=== PATIENT | female | born 1990 | race Caucasian/White ===

== ENCOUNTER 2019-03-15 18:43 | Day surgery (SDC) | payer BC ==
[2019-03-15] MEDS ORDERED: Betamet Acet/Betamet Na Ph 30 MG/5 ML VIAL ONE (19:14)
[2019-03-15] MEDS ORDERED: Betamet Acet/Betamet Na Ph 30 MG/5 ML VIAL IM SCH (19:30)
== END 2019-03-15 19:27 | disposition home or self-care (01) ==
LOC: L&D/OP 18:43
PROVIDERS: ATTEND Obstetrics & Gynecology
DX: Z29.8 Encounter for other specified prophylactic measures (principal)
CPT/HCPCS: J0702

== ENCOUNTER 2019-04-07 05:25 | Inpatient (IN) | payer BC ==
[2019-04-07] MEDS ORDERED: Ondansetron PF 4 MG/2 ML Vial IVP PRN ×3 (05:44→14:41)
[2019-04-07] MEDS ORDERED: Promethazine HCl 25 MG/ML VIAL IM PRN ×3 (05:44→14:41)
[2019-04-07] MEDS ORDERED: Butorphanol Tartrate 1 MG/ML VIAL SLOW IVP PRN ×2 (05:44→05:45)
[2019-04-07] MEDS ORDERED: Acetaminophen 500 MG TAB PO PRN (05:44)
[2019-04-07] MEDS ORDERED: NS / Oxytocin 40 units/1000ml 1,000 ML IV SCH (05:45)
[2019-04-07] MEDS ORDERED: Docusate 100 MG CAP PO PRN (05:45)
[2019-04-07] MEDS ORDERED: NS w/ Oxytocin 10 units 500 ML IV SCH ×2 (05:45)
[2019-04-07] MEDS ORDERED: Lactated Ringer's 1,000 ML IV PRN (05:45)
[2019-04-07] MEDS ORDERED: Methylergonovine 0.2 MG/ML VIAL IM PRN (05:45)
[2019-04-07] MEDS ORDERED: Misoprostol 200 MCG TAB RC PRN (05:45)
[2019-04-07] MEDS ORDERED: Lidocaine 1% (PF) 30 ML VIAL SC PRN ×2 (05:45)
[2019-04-07] MEDS ORDERED: HYDROcodone/Acetaminophen 5/325 mg Tablet PO PRN ×2 (05:45)
[2019-04-07] MEDS ORDERED: Lactated Ringer's 1,000 ML IV SCH (05:45)
[2019-04-07] MEDS ORDERED: Ibuprofen 800 MG TAB PO PRN (05:45)
[2019-04-07] MEDS ORDERED: NS / Oxytocin 40 units/1000ml 1,000 ML IV PRN (05:45)
[2019-04-07 05:52] VITALS: BMI 22.8
[2019-04-07 06:16] LABS: Hemoglobin 10.4 g/dL (12.0-16.0); Mean Corpuscular HGB CONC 33.5 g/dL (32.0-36.0); Mean Corpuscular Hemoglobin 28.8 pg (27.0-31.0); Mean Corpuscular Volume 85.8 fL (78.0-98.0); Mean Platelet Volume 9.3 fL (7.4-10.4); Platelet Count 138 thou/uL (130-400); RBC Distribution Width 15.8 % (11.5-14.5); Red Blood Cell (RBC) Count 3.61 mill/uL (4.20-5.40); White Blood Cell (WBC) Count 8.1 thou/uL (4.8-10.8)
[2019-04-07] MEDS: NS w/ Oxytocin 10 units 500 ML IV SCH (06:37)
[2019-04-07 06:58] LABS: HBSAg Index 0.31 S/CO (0-0.99); Hep B Surf Ag Non-Reactive S/CO (NonReactive); Syphilis Antibody Nonreactive (Nonreactive); Syphilis Antibody Index 0.03 S/CO (<1.00 Non-Reactive)
[2019-04-07] MEDS ORDERED: Fentanyl 4 mcg/Bup 0.1% Cadd 100 ML ONE ×2 (08:32→20:32)
[2019-04-07] MEDS: Lactated Ringer's 1,000 ML IV SCH ×2 (11:45→21:59)
[2019-04-07] MEDS ORDERED: Lactated Ringer's 500 ML IV PRN (14:41)
[2019-04-07] MEDS ORDERED: ePHEDrine/0.9% NaCl/PF SYRINGE 50 mg/10 ml SLOW IVP PRN (14:41)
[2019-04-07] MEDS ORDERED: diphenhydrAMINE 50 MG/ML VIAL IVP PRN (14:41)
[2019-04-07] MEDS ORDERED: Naloxone HCl 0.4 mg/ml Vial IVP PRN ×2 (14:41)
[2019-04-07] MEDS ORDERED: Acetaminophen 325 MG TAB PO PRN (14:41)
[2019-04-07] MEDS ORDERED: Fentanyl 4 mcg/Bupivacaine 0.1% Cassette 100 ML EPIDURAL SCH (14:45)
[2019-04-07] MEDS ORDERED: Communication Order-Pharmacy FS SCH (14:45)
[2019-04-08] MEDS ORDERED: Bupivacaine 0.25% HCL 30 ML VIAL ONE ×2 (01:20→11:11)
[2019-04-08] MEDS ORDERED: Lidocaine 2% 10 ML INJ ONE (01:21)
[2019-04-08] MEDS ORDERED: Bisacodyl 10 MG SUPP PR PRN (03:45)
[2019-04-08] MEDS ORDERED: Zolpidem Tartrate 5 MG TAB PO PRN (03:45)
[2019-04-08] MEDS ORDERED: Ondansetron PF 4 MG/2 ML Vial IVP PRN (03:45)
[2019-04-08] MEDS ORDERED: Benzocaine-Menthol 82.5 ML CAN TOP PRN (03:45)
[2019-04-08] MEDS ORDERED: Milk Of Magnesia 30 ML UDCUP PO PRN (03:45)
[2019-04-08] MEDS ORDERED: HYDROcodone/Acetaminophen 5/325 mg Tablet PO PRN (03:45)
[2019-04-08] MEDS ORDERED: Preparation H Ointment 28 GM TUBE PR PRN (03:45)
[2019-04-08] MEDS ORDERED: Lanolin Ointment 7 GM TUBE TOP PRN (03:45)
[2019-04-08] MEDS ORDERED: NS / Oxytocin 40 units/1000ml 1,000 ML IV SCH (03:45)
[2019-04-08] MEDS: Ibuprofen 800 MG TAB PO SCH ×3 (05:58→22:00)
[2019-04-08] MEDS: Prenatal Vitamin 1 TAB PO SCH (08:20)
[2019-04-08] MEDS: Ferrous Sulfate 325 MG TAB PO SCH ×2 (08:20→18:08)
[2019-04-08] MEDS: Docusate Calcium (SURFAK) 240 MG CAP PO SCH ×2 (08:20→21:59)
[2019-04-08] MEDS ORDERED: Bupivacaine/Epinephrine 0.25% 30 ML VIAL ONE (11:11)
[2019-04-08] MEDS: HYDROcodone/Acetaminophen 5/325 mg Tablet PO PRN (12:22)
[2019-04-08] MEDS ORDERED: Sodium Chloride 0.9% 10 ML ONE (14:32)
[2019-04-08] MEDS: Lactated Ringer's 1,000 ML IV SCH (18:08)
[2019-04-08] MEDS: NS w/ Oxytocin 10 units 500 ML IV SCH (18:08)
[2019-04-09] MEDS: Ibuprofen 800 MG TAB PO SCH ×3 (06:21→21:34)
[2019-04-09] MEDS: Prenatal Vitamin 1 TAB PO SCH (08:32)
[2019-04-09] MEDS: Docusate Calcium (SURFAK) 240 MG CAP PO SCH ×2 (08:32→21:34)
[2019-04-09] MEDS: HYDROcodone/Acetaminophen 5/325 mg Tablet PO PRN ×2 (08:55→13:31)
[2019-04-09] MEDS ORDERED: Adacel (T-DAP) 0.5 ML SYRINGE IM ONE (09:00)
[2019-04-09] MEDS: Lactated Ringer's 1,000 ML IV SCH ×2 (09:06→13:45)
[2019-04-09] MEDS: NS w/ Oxytocin 10 units 500 ML IV SCH (09:07)
[2019-04-09] MEDS: Ferrous Sulfate 325 MG TAB PO SCH (09:09)
[2019-04-10] MEDS: Ibuprofen 800 MG TAB PO SCH (05:06)
[2019-04-10 07:42] VITALS: BP 129/79; TEMP 97.8
[2019-04-10] MEDS: Lactated Ringer's 1,000 ML IV SCH (09:13)
[2019-04-10] MEDS: Prenatal Vitamin 1 TAB PO SCH (09:14)
[2019-04-10] MEDS: Docusate Calcium (SURFAK) 240 MG CAP PO SCH (09:14)
[2019-04-10] MEDS: Ferrous Sulfate 325 MG TAB PO SCH (09:14)
[2019-04-10] MEDS: NS w/ Oxytocin 10 units 500 ML IV SCH (09:15)
== END 2019-04-10 13:49 | disposition home or self-care (01) | DRG 807 ==
LOC: L&D 05:25 → 3SW 04-08 13:29
PROVIDERS: ADMIT Obstetrics & Gynecology; ATTEND Obstetrics & Gynecology
PROC: 10E0XZZ Delivery of Products of Conception, External Approach (ICD-10-PCS; principal; 2019-04-08)
PROC: 3E033VJ Introduction of Other Hormone into Peripheral Vein, Percutaneous Approach (ICD-10-PCS; 2019-04-08)
PROC: 0HQ9XZZ Repair Perineum Skin, External Approach (ICD-10-PCS; 2019-04-08)
DX: O30.043 Twin pregnancy, dichorionic/diamniotic, third trimester (principal); Z37.2 Twins, both liveborn; O99.02 Anemia complicating childbirth; D64.9 Anemia, unspecified; O70.0 First degree perineal laceration during delivery; Z3A.37 37 weeks gestation of pregnancy
CPT/HCPCS: 36415; 51702; 85027; 85461; 86780; 86850; 86870; 86900; 86901; 87340; 90384; 96372; J2001; J2590; S0020